=== PATIENT | male | born 1990 | race Caucasian/White ===

== ENCOUNTER 2017-02-17 05:46 | Emergency (ER) | payer SELFPAY ==
[~2017-02-17] VITALS: Ht 177.8 cm; Wt 70.3 kg
[~2017-02-17 05:46] MED LIST: CPR500T PO
--- NOTE | 2017-02-17 06:12 | ED Upper Extremity ---
General Chief Complaint: Upper Extremity Stated Complaint: INJ R HAND Nursing Triage Note: PUNCHED REFRIGERATOR Nursing Sepsis Screen: No Definite Risk Source: patient Exam Limitations: no limitations History of Present Illness Time seen by provider: 06:07 Initial Comments This 26-year-old man presents to the emergency room with pain in the right hand. He punched a refrigerator 2 days ago injuring the hand. Then last night he was fishing and slipped on the bank. He landed on the right hand resulting in severe exacerbation of pain. He has swelling and stiffness. He is particularly tender over the fourth metacarpal and finger. Allergies and Home Medications Allergies Coded Allergies: No Known Drug Allergies (Unverified , 08/01/12) Home Medications Hydrocodone/Acetaminophen 1 Each Tablet, 1 EACH PO Q6H PRN for PAIN, #14 Prescribed by: RASHMI LAINEZ on 02/17/17 0758 Constitutional: no symptoms reported EENTM: no symptoms reported Respiratory: no symptoms reported Cardiovascular: no symptoms reported Gastrointestinal: no symptoms reported Genitourinary: no symptoms reported Musculoskeletal: see HPI Skin: no symptoms reported Psychiatric/Neurological: No Symptoms Reported Past Bxzgqeu-Pbnntt-Ezztyw Hx Patient Social History Alcohol Use: Denies Use Recreational Drug Use: No Smoking Status: Current Someday Smoker Type Used: Cigarettes 2nd Hand Smoke Exposure: Yes Recent Foreign Travel: No Contact w/Someone Who Travel: No Recent Infectious Disease Expo: No Recent Hopitalizations: No Immunizations Up To Date Tetanus Booster (TDap): Unknown PED Vaccines UTD: Yes Seasonal Allergies Seasonal Allergies: No Surgeries HX Surgeries: No Respiratory Hx Respiratory Disorders: No Cardiovascular Hx Cardiac Disorders: No Neurological Hx Neurological Disorders: No Reproductive System Hx Reproductive Disorders: No Genitourinary Hx Genitourinary Disorders: No Gastrointestinal Hx Gastrointestinal Disorders: No Musculoskeletal Hx Musculoskeletal Disorders: No Endocrine Hx Endocrine Disorders: No HEENT HX ENT Disorders: No Cancer Hx Cancer: No Psychosocial Hx Psychiatric Problems: No Integumentary HX Skin/Integumentary Disorder: No Physical Exam Vital Signs Vital Sign - Last 12Hours 02/17/17 05:59 Temp 97.7 Pulse 81 Resp 16 B/P (MAP) 130/91 Pulse Ox 99 O2 Delivery Room Air Capillary Refill : Less Than 3 Seconds General Appearance: WD/WN, no apparent distress HEENT: PERRL/EOMI, normal ENT inspection Cardiovascular: regular rate, rhythm, no edema, no murmur Respiratory: lungs clear, normal breath sounds, no respiratory distress, no accessory muscle use Shoulder: normal inspection, no evidence of injury Elbow/Forearm: normal inspection, non-tender, no evidence of injury, normal ROM Wrist: Yes normal inspection, Yes non-tender, Yes no evidence of injury, Yes normal ROM Hand: Right (tenderness over the fourth finger and metacarpal. 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 Lu. He recommended hussein taping to adjacent finger and splinting. The fourth finger was hussein taped to the third finger which helped reduce the displacement. An AlumaFoam splint was then applied. Patient was instructed to follow-up with Dr. Lu in the clinic. Hydrocodone was given for pain. Diagnostic Imaging Diagonstic Imaging: Xray Plain Films/CT/US/NM/MRI: hand Comments Hand x-ray viewed by me and report reviewed. See report below: NAME: WILLIAM BLANCA [facility] REC#: [id number] PT STATUS: REG ER : 1990 PHYSICIAN: RASHMI LOPEZ MD ADMIT DATE: 02/17/17/ER Draft Date of Exam:02/17/17 HAND, RIGHT, 3 VIEWS INDICATION: Trauma, right hand pain Three views of the right hand show a comminuted fracture involving the proximal metaphysis of the proximal phalanx of the right fourth digit with mild radial angulation of the distal fracture fragment. No definite intra-articular component is seen. There is less than 5 mm of displacement. IMPRESSION: There is a mildly displaced mildly angulated fracture of the proximal phalanx of the fourth digit. Dictated on workstation # [id number] Dict: 02/17/17 0640 Trans: 02/17/17 0650 KELLY [id number] Interpreted by: MARAL GARCIA MD Departure Impression Impression: Primary Impression: Proximal phalanx fracture of finger Qualified Codes: S62.614A - Displaced fracture of proximal phalanx of right ring finger, initial encounter for closed fracture Disposition: HOME, SELF-CARE Condition: Improved Departure-Patient Inst. Decision time for Depature: 07:30 Referrals: NO,LOCAL PHYSICIAN (PCP) Primary Care Physician [facility] (Family) Primary Care Physician ERON LU MD Patient Instructions: Finger Fracture (DC) Add. Discharge Instructions: Icing in 20 minute intervals, rest, elevation, and splinting should help with pain and swelling. You may take hydrocodone as prescribed for pain. Do not drive or operate machinery while on this medication. Follow-up with an orthopedic surgeon as soon as possible. Contact information for Dr. Lu has been provided. Call on Saturday to make an appointment. All discharge instructions reviewed with patient and/or family. Voiced understanding. Scripts Hydrocodone/Acetaminophen (Hydrocodon -Acetaminophen 5-325) 1 Each Tablet 1 EACH PO Q6H Y for PAIN, #14 TAB Prov: RASHMI LOPEZ MD 02/17/17 Copy Copies To 1: ERON LU MD, JOSHUA T MD Feb 17, 2017 06:12
--- NOTE | 2017-02-17 06:50 | Diagnostic Imaging Report ---
INDICATION: Trauma, right hand pain Three views of the right hand show a comminuted fracture involving the proximal metaphysis of the proximal phalanx of the right fourth digit with mild radial angulation of the distal fracture fragment. No definite intra-articular component is seen. There is less than 5 mm of displacement. IMPRESSION: There is a mildly displaced mildly angulated fracture of the proximal phalanx of the fourth digit. Dictated by: Dictated on workstation # [id number]
[2017-02-17] MEDS ORDERED: HYDR-3812 PO (07:58)
[2017-02-17] MEDS ORDERED: HYDROcodone/APAP 5 MG/325 MG (LORTAB) TAB PO ONE (08:15)
[2017-02-17 08:18] VITALS: BP 130/91
--- OUTSIDE RECORDS SUMMARY | 2017-02-18 18:15 | XMS REPORT | Continuity of Care Document ---
Demographics Preferred Language Unknown Marital Status Unknown Baptism Affiliation Unknown Race Unknown Ethnic Group Unknown Author Author [facility] Address Unknown Phone Unavailable Allergies Active Description Code Type Severity Reaction Onset Reported/Identified Relationship to Patient Clinical Status Yes No Known Drug Allergies [id number] Drug Allergy Unknown N/ A 08/01/2012 Medications Problems Date Dx Coded Attending Type Code Diagnosis Diagnosed By 08/03/2012 Ot 599.71 GROSS HEMATURIA 08/03/2012 Ot 789.09 ABDOMINAL PAIN, OTHER SPECIFIED SITE 11/04/2012 815.00 CLOSED FRACTURE OF METACARPAL BONE(S) SITE UNSPECIFIED 11/04/2012 815.00 Closed Fracture Of Metacarpal Bone(s) Site Unspecified 11/04/2012 815.00 Closed Fracture Of Metacarpal Bone(s) Site Unspecified 11/27/2012 816.00 CLOSED FRACTURE OF PHALANX OR PHALANGES OF HAND UNSPECIFIED Procedures Code [place] [address] APPLY FOREARM SPLINT 11/04/2012 78375 XRAY HAND RIGHT MIN 3 VIEWS 11/04/2012 Orthopedi Steve Reyes 11/06/2012 53728 XRAY HAND RIGHT MIN 3 VIEWS 11/27/2012 Results Encounters ACCT No. Visit Date/Time Discharge Status Pt. Type Provider Facility Loc./Unit Complaint [id number] 11/27/2012 14:11:00 11/27/2012 23: 59:59 CLS Outpatient [id number] 11/06/2012 15:15:00 11/06/2012 23: 59:59 CLS Outpatient [id number] 11/04/2012 14:34:00 11/04/2012 23: 59:59 CLS Outpatient
== END 2017-02-17 08:17 | disposition home or self-care (01) ==
LOC: EDUNIT# 05:46 → ER 05:53
DX: S62.614A Displaced fracture of proximal phalanx of right ring finger, initial encounter for closed fracture (principal); F17.210 Nicotine dependence, cigarettes, uncomplicated; W01.0XXA Fall on same level from slipping, tripping and stumbling without subsequent striking against object, initial encounter; Y92.89 Other specified places as the place of occurrence of the external cause
CPT/HCPCS: 29130; 73130